=== PATIENT | female | born 1945 | race African-American/Black ===

== ENCOUNTER 2017-09-19 16:48 | Emergency (ER) | payer OTHER ==
[~2017-09-19] VITALS: Ht 165.1 cm; Wt 90.7 kg
--- NOTE | 2017-09-19 17:38 | ED GENERAL ADULT ---
History of Present Illness General Chief Complaint: General Adult Stated Complaint: BIBA FOR ABNL LABS Source: patient, family, EMS, [employer] FROM [facility] Exam Limitations: no limitations Vital Signs & Intake/Output Vital Signs & Intake/Output Vital Signs Date Time Temp Pulse Resp B/P B/P Pulse O2 O2 Flow FiO2 Mean Ox Delivery Rate 09/19 1651 95.5 65 18 163/78 95 Room Air Allergies Coded Allergies: Penicillins (SYNCOPE 09/19/17) lisinopril (ANGIODEMA 09/19/17) Uncoded Allergies: BLUE CHEESE (UNKNOWN 09/19/17) Triage Note: PT BIBA FROM ECF FOR "ABNORMAL LABS" PER ECF. PT ARRIVED WITH NO COMPLAINTS AND STATING "I TOLD THEM NOT TO BRING ME I DONT WANT TO BE HERE" PT HAS BASELINE DEMENTIA, CURRENTLY A&0X3. PER ECF STAFF PT HAS ABD PAIN WITH 1X EPISODE OF VOMITING. PTS ABNORMAL LABS BROUGHT TO ER "AMYLASE 289 AND LIPASE 1639". Triage Nurses Notes Reviewed? yes Onset: Abrupt Duration: day(s): (1) Timing: no prior history Injury Environment: home Severity: moderate No Modifying Factors: none HPI: Patient is a 72-year-old female sent in by EMS from nursing facility with chief complaint of abdominal pain and elevated lipase that was revealed on lab that was done at the nursing facility. Patient has history of colitis, CHF, mitral valve repair, hypertension, pacemaker. Patient also has history of dementia, poor historian. According to nurse practitioner patient developed pain this morning, also had decreased by mouth intake. Sent in for evaluation trial a "blockage" near the pancreas that would cause elevated lipase. No recent changes medications. Does not drink alcohol. (Sherine Mclaughlin) Past History Travel History Traveled to [place] past 21 day No Medical History Any Pertinent Medical History? see below for history (SEE W10) History of MRSA: No History of VRE: No History of CDIFF: No Pneumonia Vaccine: 03/25/11 Surgical History Surgical History: non-contributory Psychosocial History Who do you live with Family Services at Home None What is your primary language Moldovan Family History Hx Contributory? No (Sherine Mclaughlin) Review of Systems Review of Systems Constitutional: Reports: no symptoms. Comments Review of systems: See HPI, All other systems negative. Review of systems provided by Lewis dudley, nurse practitioner, family member and patient. Constitutional, no chills fever or weight loss HEENT: No visual changes no sore throat no congestion Cardiovascular: No chest pain ,palpitation , orthopnea or ankle swelling Skin, no jaundice no rashes Respiratory: No dyspnea cough sputum or hemoptysis GI: No nausea no vomiting : No dysuria No hematuria Muscle skeletal: no back pain, no neck pain, Neurologic: No numbness no increased confusion Psych: No stress anxiety or depression,. Heme/endocrine: No bruising no bleeding no polyuria or polydipsia Immunology: No splenectomy or history of AIDS (Etta JARRETT,Sherine) Physical Exam Physical Exam General Appearance: well developed/nourished, no apparent distress, alert, awake , comfortable Comments: Well-developed well-nourished person in no acute distress HEENT: Atraumatic, normocephalic, moist oral mucosa. Neck: Normal inspection Cardiovascular: Regular rate and rhythms Respiratory: No respiratory distress.breath sounds clear to auscultation bilaterally Abdomen: Soft, mildly tender to palpation in the epigastric region without rebound or guarding. Nondistended, no appreciable organomegaly. Normal bowel sounds. No ascites Neuro: Alert oriented to person and place, confused at first to why she is in the emergency department. Baseline per family. Skin: No appreciable rash on exposed skin, skin is warm and dry. Psych: Mood and affect is normal, poor memory. Core Measures ACS in differential dx? No CVA/TIA Diagnosis: No Sepsis Present: No Sepsis Focused Exam Completed? No (Sherine Mclaughlin) Progress Differential Diagnoses I considered the following diagnoses in my evaluation of the patient: Pancreatitis, gastritis, medication reaction, gallstone-induced pancreatitis, choledocholithiasis, cholangitis, dehydration, electrolyte abnormality Diagnostic Imaging: Viewed by Me: CT Scan. Discussed w/RAD: CT Scan. Radiology Impression: PATIENT: KEN HAWKINS PRESENT AGE: 72 PATIENT ACCOUNT NO: [id number] : 43 LOCATION: [facility] ORDERING PHYSICIAN: Sherine JARRETT SERVICE DATE: 09/19/17817 EXAM TYPE: CAT - CT ABD & PELVIS W IV CONTRAST EXAMINATION: CT ABDOMEN AND PELVIS WITH CONTRAST CLINICAL INFORMATION: Abdominal pain. Elevated lipase. COMPARISON: 09/12/2012 TECHNIQUE: Multidetector volumetric imaging was performed of the abdomen and pelvis following IV administration of 95 mL of Optiray 320 intravenous contrast. Sagittal and coronal reformatted images were obtained on the technologist's workstation. DLP: 860 mGy-cm FINDINGS: LUNG BASES: Left basilar subsegmental atelectasis. The heart is enlarged. LIVER, GALLBLADDER, AND BILIARY TREE: The liver is normal in size, shape, and attenuation. No biliary ductal dilatation. There is a hyperattenuating lesion in segment 7 of the liver measuring 2.7 cm. This is not definitively seen on the previous CT.. Gallstones are noted. No gallbladder wall thickening or pericholecystic fluid. Phrygian cap of the gallbladder fundus. PANCREAS: Unremarkable. SPLEEN: Unremarkable. ADRENAL GLANDS: Unremarkable. KIDNEYS AND URETERS: The kidneys are normal in size, shape , and attenuation. No hydronephrosis, hydroureter, or calculi seen. No perinephric stranding. Small exophytic right upper pole renal cyst. BLADDER: Unremarkable. GASTROINTESTINAL TRACT: There is a large hiatal hernia with nearly the entire stomach above the diaphragm. The small bowel is normal in caliber. No obstruction. There is a portion of the descending colon which demonstrates wall thickening with adjacent inflammation. No definite colonic diverticula are noted. ABDOMINAL WALL: No significant hernia is appreciated. LYMPH NODES: Normal. VASCULAR: Normal caliber aorta with moderate atherosclerotic calcifications. PELVIC VISCERA: The uterus and adnexa are unremarkable. OSSEOUS STRUCTURES: No acute or suspicious osseous abnormality. Multilevel degenerative changes of the spine, worst at L4-L5 and L5-S1 with vacuum disc phenomenon. IMPRESSION: Wall thickening with inflammation involving the descending colon favoring colitis, as no diverticula are seen. Hyperattenuating lesion in segment 7 of the liver which is not definitively seen on prior. This is a nonspecific finding, but may represent a hemangioma in the absence of malignancy. MR could be performed to further evaluate if clinically indicated. DICTATED BY: Matthew Gomez MD DATE/TIME DICTATED:09/19/171940 IT ARCHITECT: DANIEL DATE/TIME TRANSCRIBED:09/19/171940 CONFIDENTIAL, DO NOT COPY WITHOUT APPROPRIATE AUTHORIZATION. <Electronically signed in Other Vendor System> SIGNED BY: Matthew Gomez MD 09/19/171955 Initial ED EKG: none Hand-Off Endorsed To: Sharri Owen Endorsed Time: 1948 Pending: CT, labs Comments: 09/19/2017 7:50:20 PM patient is nontoxic, well-appearing. Mild abdominal pain on exam. Vitals are stable. We will recheck labs. Lipase from prior to arrival was 1639 and amylase is 289. Repeat lipase is in the 600s. Still pending CT scan at that time. Patient will be signed out to [facility] pending CT results. Spoke with nurse practitioner., She reported that if patient only needs IV hydration it can be performed at the nursing facility. pt signed out to nora rausch pending CT and re-eval. (Etta JARRETT,Sherine) Plan of Care: Orders Procedure Date/time Status Add-on Test (ER Only) 09/19 194 Active Add-on Test (ER Only) 09/19 1839 Active LIPID PANEL 09/19 1800 Active LIPASE 09/19 1800 Active ETHANOL 09/19 1800 Active AMYLASE 09/19 1800 Active URINALYSIS 09/19 1655 Active LACTIC ACID 09/19 1655 Active DIRECT BILIRUBIN 09/19 1655 Active COMPREHENSIVE METABOLIC PANEL 09/19 1655 Active CBC WITHOUT DIFFERENTIAL 09/19 1655 Complete Laboratory Tests 09/19/17 1955: Lactic Acid Cancelled 09/19/17 1800: Anion Gap 10, Estimated GFR > 60, BUN/Creatinine Ratio 22.2, Glucose 105 H, Lactic Acid 0.8, Calcium 9.7, Total Bilirubin 0.6, Direct Bilirubin 0.4, AST 20, ALT 20, Alkaline Phosphatase 106, Total Protein 7.3, Albumin 3.9, Globulin 3.4, Albumin/Globulin Ratio 1.1, Triglycerides Pending, Cholesterol Pending, LDL Cholesterol, Calc Pending, HDL Cholesterol Pending, Cholesterol/HDL Ratio Pending, Amylase 217 H, Lipase 655 H, CBC w Diff NO MAN DIFF REQ, RBC 5.31, MCV 72.4 L, MCH 21.9 L, MCHC 30.3 L, RDW 17.4 H, MPV 9.0, Gran % 87.7 H, Lymphocytes % 7.1 L, Monocytes % 4.9, Eosinophils % 0.3, Basophils % 0, Absolute Granulocytes 8.6 H, Absolute Lymphocytes 0.7 L, Absolute Monocytes 0.5, Absolute Eosinophils 0, Absolute Basophils 0, Serum Alcohol Pending (Sharri Owen) Departure Departure Disposition: HOME OR SELF CARE Condition: Stable Referrals: Luis Herr MD (PCP/Family) Departure Forms: Customer Survey General Discharge Information (Sherine Mclaughlin) Departure Clinical Impression Primary Impression: Colitis Secondary Impressions: Abdominal pain Pancreatitis Qualifiers: Chronicity: acute Pancreatitis type: unspecified pancreatitis type Acute pancreatitis complication: unspecified Qualified Code: K85.90 - Acute pancreatitis without necrosis or infection, unspecified Additional Instructions: Take full course of antibiotics for 10 days. Follow-up with your primary care physician in the next 2-4 days. Increase oral fluids to help with pancreatitis. Once tolerating clear fluids begin increasing diet to solid foods. Also follow -up with gastroenterology. Return for worsening symptoms or concerns. (Sharri Owen) PA/[employer] Co-Sign Statement Statement: ED Attending supervision documentation- [] I saw and evaluated the patient. I have also reviewed all the pertinent lab results and diagnostic results. I agree with the findings and the plan of care as documented in the PA's/CORRECTIONAL OFF[employer]ER [employer]NT's documentation. [x] I have reviewed the ED Record and agree with the PA's/[employer]RECTIONAL [employer]'s documentation. [] Additions or exceptions (if any) to the PAs/CORRECTIONAL OFF[employer]ER [employer]NT's note and plan are summarized below: [] (Nahun KAYE,Lloyd Michelle) Critical Care Note Critical Care Note Critical Care Time: non-applicable (Sherine Mclaughlin)
[2017-09-19 18:45] LABS: ABSOLUTE BASOPHIL COUNT 0 /CUMM (0.0-0.2); ABSOLUTE EOSINOPHIL COUNT 0 /CUMM (0.0-0.7); ABSOLUTE GRANULOCYTE CT 8.6 /CUMM (1.4-6.5); ABSOLUTE LYMPH COUNT 0.7 /CUMM (1.2-3.4); ABSOLUTE MONOCYTE COUNT 0.5 /CUMM (0.10-0.60); BASOPHIL % 0 % (0.0-2.0); EOSINOPHIL % 0.3 % (0-5); HEMATOCRIT 38.5 % (37-47); MEAN CORPUSCULAR HGB 21.9 PG (27.0-31.0); MEAN CORPUSCULAR HGB CONC 30.3 G/DL (33.0-37.0); MEAN CORPUSCULAR VOLUME 72.4 FL (81.0-99.0); PLATELET COUNT 285 /CUMM (130-400); RBC DISTRIBUTION WIDTH 17.4 % (11.5-14.5); RED BLOOD CELL CT 5.31 /CUMM (4.20-5.40); WHITE BLOOD CELL COUNT 9.8 /CUMM (4.8-10.8)
[2017-09-19 18:46] LABS: GRANULOCYTE % 87.7 % (42.2-75.2)
--- NOTE | 2017-09-19 19:56 | CT SCAN REPORT ---
EXAMINATION: CT ABDOMEN AND PELVIS WITH CONTRAST CLINICAL INFORMATION: Abdominal pain. Elevated lipase. COMPARISON: 09/12/2012 TECHNIQUE: Multidetector volumetric imaging was performed of the abdomen and pelvis following IV administration of 95 mL of Optiray 320 intravenous contrast. Sagittal and coronal reformatted images were obtained on the technologist's workstation. DLP: 860 mGy-cm FINDINGS: LUNG BASES: Left basilar subsegmental atelectasis. The heart is enlarged. LIVER, GALLBLADDER, AND BILIARY TREE: The liver is normal in size, shape, and attenuation. No biliary ductal dilatation. There is a hyperattenuating lesion in segment 7 of the liver measuring 2.7 cm. This is not definitively seen on the previous CT.. Gallstones are noted. No gallbladder wall thickening or pericholecystic fluid. Phrygian cap of the gallbladder fundus. PANCREAS: Unremarkable. SPLEEN: Unremarkable. ADRENAL GLANDS: Unremarkable. KIDNEYS AND URETERS: The kidneys are normal in size, shape, and attenuation. No hydronephrosis, hydroureter, or calculi seen. No perinephric stranding. Small exophytic right upper pole renal cyst. BLADDER: Unremarkable. GASTROINTESTINAL TRACT: There is a large hiatal hernia with nearly the entire stomach above the diaphragm. The small bowel is normal in caliber. No obstruction. There is a portion of the descending colon which demonstrates wall thickening with adjacent inflammation. No definite colonic diverticula are noted. ABDOMINAL WALL: No significant hernia is appreciated. LYMPH NODES: Normal. VASCULAR: Normal caliber aorta with moderate atherosclerotic calcifications. PELVIC VISCERA: The uterus and adnexa are unremarkable. OSSEOUS STRUCTURES: No acute or suspicious osseous abnormality. Multilevel degenerative changes of the spine, worst at L4-L5 and L5-S1 with vacuum disc phenomenon. IMPRESSION: Wall thickening with inflammation involving the descending colon favoring colitis, as no diverticula are seen. Hyperattenuating lesion in segment 7 of the liver which is not definitively seen on prior. This is a nonspecific finding, but may represent a hemangioma in the absence of malignancy. MR could be performed to further evaluate if clinically indicated.
[2017-09-19 23:23] VITALS: BP 152/74
== END 2017-09-19 23:24 ==
LOC: ERH 16:48
PROVIDERS: Physician Assistant
DX: K52.9 Noninfective gastroenteritis and colitis, unspecified (principal); K85.90 Acute pancreatitis without necrosis or infection, unspecified
CPT/HCPCS: 74177; 96360; 96361; G0480